=== PATIENT | female | born 1975 ===

== ENCOUNTER 2017-04-05 04:34 | Emergency (ER) | payer SELFPAY ==
[2017-04-05 04:35] VITALS: BP 177/88; PULSE 73; RESP 16; TEMP 98.9; O2SAT 99
[2017-04-05] MEDS ORDERED: IOHEXOL 350 MG/ML 10 ML VIAL (for RAD DIAG) IVCONTRAST ONE (04:35)
[2017-04-05 05:50] VITALS: BP 177/103; PULSE 80; RESP 20; O2SAT 100
[2017-04-05] MEDS ORDERED: SODIUM CHLOR 0.9% 1000 ML INJ 1,000 ML IV SCH (05:57)
[2017-04-05] MEDS ORDERED: SODIUM CHLORIDE 0.9% FLUSH 10 ML FLUSH IV FLUSH PRN (06:00)
[2017-04-05] MEDS ORDERED: MORPHINE SULFATE 8 MG/ML INJ IV PUSH ONE (06:00)
[2017-04-05] MEDS ORDERED: LIDOCAINE VISCOUS 2% SOLN 15 ML UDC PO ONE (06:00)
[2017-04-05] MEDS ORDERED: ALUMINUM/MAGNESIUM/SIMETH 30 ML CUP PO ONE (06:00)
[2017-04-05 06:31] VITALS: BP 151/83; PULSE 60; RESP 19; O2SAT 98
--- NOTE | 2017-04-05 06:39 | PD ---
HPI Chief Complaint: Abdominal Pain Time Seen by Provider: 05:51 Travel History International Travel<30 days: No Contact w/Intl Traveler<30days: No Traveled to known affect area: No History of Present Illness HPI The patient is 42 years old. She reports abdominal cramping last night and again tonight. Tonight the pain is really quite severe prior and the right upper quadrant with radiation to the back. No vomiting diarrhea or fever. Appetite is normal. Last oral intake was chicken. Patient denies any unusual activity that may have led to symptoms. No similar priors. No vaginal discharge. Last menstruation right now. PFSH Past Medical History Immunizations Current: Yes ?: Not : 3 Para: 3 Tubal Ligation: Yes Social History Alcohol Use: No Tobacco Use: No Substance Use: No Allergies-Medications (Allergen,Severity, Reaction): Coded Allergies: No Known Allergies (Unverified , 04/05/17) Reported Meds & Prescriptions Reported Meds & Active Scripts Active No Active Prescriptions or Reported Medications Review of Systems Except as stated in HPI: all other systems reviewed are Neg Physical Exam Narrative GENERAL: 42 yo F, WNWD, mild distress SKIN: Warm and dry. HEAD: Atraumatic. Normocephalic. EYES: Pupils equal and round. No scleral icterus. No injection or drainage. ENT: No nasal bleeding or discharge. Mucous membranes pink and moist. NECK: Trachea midline. No JVD. CARDIOVASCULAR: Regular rate and rhythm. RESPIRATORY: No accessory muscle use. Clear to auscultation. Breath sounds equal bilaterally. GASTROINTESTINAL: Soft. TTP RUQ and epigastric. MUSCULOSKELETAL: Extremities without clubbing, cyanosis, or edema. No obvious deformities. NEUROLOGICAL: Awake and alert. No obvious cranial nerve deficits. Motor grossly within normal limits. Five out of 5 muscle strength in the arms and legs. Normal speech. PSYCHIATRIC: Appropriate mood and affect; insight and judgment normal. Data Data Last Documented VS Vital Signs Date Time Temp Pulse Resp B/P (MAP) Pulse Ox O2 Delivery O2 Flow Rate FiO2 04/05/17 06:31 60 19 151/83 (105) 98 Room Air 04/05/17 04:35 98.9 Signs reviewed Orders Orders Complete Blood Count With Diff (04/05/17 05:57) Comprehensive Metabolic Panel (04/05/17 05:57) Lipase (04/05/17 05:57) Urinalysis - C+S If Indicated (04/05/17 05:57) Ct Abd/Pel W Iv Contrast(Rout) (04/05/17 05:57) Iv Access Insert/Monitor (04/05/17 05:57) Ecg Monitoring (04/05/17 05:57) Oximetry (04/05/17 05:57) Sodium Chlor 0.9% 1000 Ml Inj (Ns 1000 M (04/05/17 05:57) Sodium Chloride 0.9% Flush (Ns Flush) (04/05/17 06:00) Morphine Inj (Morphine Inj) (04/05/17 06:00) Al-Mag Hy-Si 40-40-4 Mg/Ml Liq (Mag-Al P (04/05/17 06:00) Lidocaine 2% Viscous (Xylocaine 2% Visco (04/05/17 06:00) Ed Urine Pregnancytest Poc (04/05/17 05:57) MDM Medical Decision Making Medical Screen Exam Complete: Yes Emergency Medical Condition: Yes Differential Diagnosis Gastritis, pancreatitis, appendicitis, acute cholecystitis, ascending cholangitis, AAA, perforated viscous, mesenteric ischemia, hepatitis, cystitis, hydronephrosis/hydroureter/nephroureter calculus, mesenteric adenitis, biliary colic Narrative Course Workup pending at time of dictation. Oncoming provider to follow-up and disposition patient. Scripts No Active Prescriptions or Reported Meds Jesus Ching MD Apr 05, 2017 06:39
[2017-04-05 06:50] LABS: AUTOMATED NEUTROPHIL # 6.3 TH/MM3 (1.8-7.7); BASOPHIL # 0.1 TH/MM3 (0-0.2); BASOPHIL % 0.8 % (0.0-2.0); EOSINOPHIL # 0.1 TH/MM3 (0-0.4); EOSINOPHIL % 1.2 % (0.0-4.0); HEMATOCRIT 41.2 % (35.0-46.0); HEMO FLAGS DIFF FINAL; LYMPHOCYTE # 1.6 TH/MM3 (1.0-4.8); MEAN CELL VOLUME 89.6 FL (80.0-100.0); MEAN CORPUSCULAR HEMOGLOBIN 30.2 PG (27.0-34.0); MEAN CORPUSCULAR HGB CONC 33.7 % (32.0-36.0); MONO % 8.1 % (0.0-8.0); NEUT % 71.9 % (16.0-70.0); PLATELET COUNT 310 TH/MM3 (150-450); RED CELL DISTRIBUTION WIDTH 14.4 % (11.6-17.2); WHITE BLOOD COUNT 8.8 TH/MM3 (4.0-11.0)
[2017-04-05 07:15] VITALS: BP 140/67; PULSE 70; RESP 16; O2SAT 97
[2017-04-05 07:16] LABS: BLOOD, URINE MOD (NEG); COMMENT (UR) CULT NOT INDICATED; CULTURE IF INDICATED CULT NOT INDICATED; GLUCOSE,URINE NEG (NEG); HYALINE CAST, URINE 1 /lpf (RARE); KETONE, URINE NEG (NEG); MUCUS URINE FEW /lpf (OCC); NITRITE,URINE NEG (NEG); PH, URINE 5.5 (5.0-8.5); SQUAMOUS EPITHELIAL CELL URINE 1 /hpf (0-5); URINE COLOR YELLOW (YELLW/STRAW)
[2017-04-05 07:21] LABS: ANION GAP 5 MEQ/L (5-15); AST (GOT) 31 U/L (15-37); BICARBONATE 26.9 MEQ/L (21.0-32.0); BLOOD UREA NITROGEN 11 MG/DL (7-18); CHLORIDE 105 MEQ/L (98-107); GLOMERULAR FILTRATION RATE 77 ML/MIN (>89); POTASSIUM 3.8 MEQ/L (3.5-5.1); SODIUM (NA) 137 MEQ/L (136-145)
[2017-04-05 07:22] LABS: ALT (GPT) 55 U/L (10-53)
[2017-04-05 07:23] LABS: ALKALINE PHOSPHATASE 78 U/L (45-117); TOTAL BILIRUBIN ADULT 0.2 MG/DL (0.2-1.0)
[2017-04-05] MEDS ORDERED: SODIUM CHLOR 0.9% 1000 ML INJ 1,000 ML IV ONE (07:30)
--- NOTE | 2017-04-05 07:35 | PD ---
Physical Exam Date Seen by Provider: Apr 05, 2017 Time Seen by Provider: 07:00 Narrative Care was assumed from Dr. Ching at 7 AM pending workup for epigastric/right upper quadrant pain. On my exam, the patient does have epigastric and right upper quadrant tenderness. Otherwise, her abdominal exam is benign. Data Data Last Documented VS Vital Signs Date Time Temp Pulse Resp B/P (MAP) Pulse Ox O2 Delivery O2 Flow Rate FiO2 04/05/17 07:15 70 16 140/67 (91) 97 Room Air 04/05/17 04:35 98.9 Orders Orders Complete Blood Count With Diff (04/05/17 05:57) Comprehensive Metabolic Panel (04/05/17 05:57) Lipase (04/05/17 05:57) Urinalysis - C+S If Indicated (04/05/17 05:57) Ct Abd/Pel W Iv Contrast(Rout) (04/05/17 05:57) Iv Access Insert/Monitor (04/05/17 05:57) Ecg Monitoring (04/05/17 05:57) Oximetry (04/05/17 05:57) Sodium Chlor 0.9% 1000 Ml Inj (Ns 1000 M (04/05/17 05:57) Sodium Chloride 0.9% Flush (Ns Flush) (04/05/17 06:00) Morphine Inj (Morphine Inj) (04/05/17 06:00) Al-Mag Hy-Si 40-40-4 Mg/Ml Liq (Mag-Al P (04/05/17 06:00) Lidocaine 2% Viscous (Xylocaine 2% Visco (04/05/17 06:00) Ed Urine Pregnancytest Poc (04/05/17 05:57) Sodium Chlor 0.9% 1000 Ml Inj (Ns 1000 M (04/05/17 07:30) Iohexol 350 Inj (Omnipaque 350 Inj) (04/05/17 04:35) Labs Laboratory Tests Test 04/05/17 06:15 White Blood Count 8.8 TH/MM3 Red Blood Count 4.60 MIL/MM3 Hemoglobin 13.9 GM/DL Hematocrit 41.2 % Mean Corpuscular Volume 89.6 FL Mean Corpuscular Hemoglobin 30.2 PG Mean Corpuscular Hemoglobin Concent 33.7 % Red Cell Distribution Width 14.4 % Platelet Count 310 TH/MM3 Mean Platelet Volume 9.3 FL Neutrophils (%) (Auto) 71.9 % Lymphocytes (%) (Auto) 18.0 % Monocytes (%) (Auto) 8.1 % Eosinophils (%) (Auto) 1.2 % Basophils (%) (Auto) 0.8 % Neutrophils # (Auto) 6.3 TH/MM3 Lymphocytes # (Auto) 1.6 TH/MM3 Monocytes # (Auto) 0.7 TH/MM3 Eosinophils # (Auto) 0.1 TH/MM3 Basophils # (Auto) 0.1 TH/MM3 CBC Comment DIFF FINAL Differential Comment Urine Color YELLOW Urine Turbidity HAZY Urine pH 5.5 Urine Specific [place] 1.023 Urine Protein TRACE mg/dL Urine Glucose (UA) NEG mg/dL Urine Ketones NEG mg/dL Urine Occult Blood MOD Urine Nitrite NEG Urine Bilirubin NEG Urine Urobilinogen LESS THAN 2.0 MG/DL Urine Leukocyte Esterase SMALL Urine RBC /hpf Urine WBC 4 /hpf Urine Squamous Epithelial Cells 1 /hpf Urine Hyaline Casts 1 /lpf Urine Mucus FEW /lpf Microscopic Urinalysis Comment CULT NOT INDICATED Blood Urea Nitrogen 11 MG/DL Creatinine 0.81 MG/DL Random Glucose 95 MG/DL Total Protein 7.8 GM/DL Albumin 3.6 GM/DL Calcium Level 9.7 MG/DL Alkaline Phosphatase 78 U/L Aspartate Amino Transf (AST/SGOT) 31 U/L Alanine Aminotransferase (ALT/SGPT) 55 U/L Total Bilirubin 0.2 MG/DL Sodium Level 137 MEQ/L Potassium Level 3.8 MEQ/L Chloride Level 105 MEQ/L Carbon Dioxide Level 26.9 MEQ/L Anion Gap 5 MEQ/L Estimat Glomerular Filtration Rate 77 ML/MIN Lipase 171 U/L [facility] Supervised Visit with STANLEY: No Narrative Course CBC & BMP Diagram 04/05/17 06:15 Total Protein 7.8, Albumin 3.6, Calcium Level 9.7, Alkaline Phosphatase 78, Aspartate Amino Transf (AST/SGOT) 31, Alanine Aminotransferase (ALT/SGPT) 55 H, Total Bilirubin 0.2 Lipase is [address] abd/pelvis: 1. Tiny fat-containing umbilical hernia. 2. Cholelithiasis. 3. Diverticulosis without diverticulitis. This patient has cholelithiasis with no evidence of cholecystitis. We discharged and referred to surgery as an outpatient Diagnosis Primary Impression: Right upper quadrant pain Additional Impression: Cholelithiasis Qualified Codes: K80.20 - Calculus of gallbladder without cholecystitis without obstruction Referrals: Jose Andrea MD 1 week Patient Instructions: Gallstones (DC), General Instructions, Narcotic given in the ED Additional Instruction: Avoid fatty and fried foods. Avoid raw vegetables. Follow up with surgery as an outpatient. Med/Other Pt SpecificInfo: Prescription(s) given Scripts Promethazine (Phenergan) 25 Mg Tablet 25 MG PO Q6H Y for NAUSEA OR VOMITING, #12 TAB 0 Refills Prov: Gail Tripathi MD 04/05/17 Hydrocodone-Acetaminophen ([place]) 5-325 mg Tab 1 TAB PO Q4H Y for PAIN, #12 TAB 0 Refills Prov: Gail Tripathi MD 04/05/17 Disposition: 01 DISCHARGE HOME Condition: Stable Gail Tripathi MD Apr 05, 2017 07:35
--- NOTE | 2017-04-05 07:58 | RADRPT ---
EXAM DATE/TIME: 04/05/2017 07:41 [place] COMPARISON: No previous studies available for comparison. INDICATIONS : Abdominal pain. IV CONTRAST: 95 cc Omnipaque 350 (iohexol) IV ORAL CONTRAST: No oral contrast ingested. RADIATION DOSE: 16.86 CTDIvol (mGy) MEDICAL HISTORY : None SURGICAL HISTORY : Tubal ligation. ENCOUNTER: Initial ACUITY: 1 day PAIN SCALE: 7/10 LOCATION: Bilateral upper quadrant TECHNIQUE: Volumetric scanning of the abdomen and pelvis was performed. Using automated exposure control and ad justment of the mA and/or kV according to patient size, radiation dose was kept as low as reasonably achievable to obtain optimal diagnostic quality images. DICOM format image data is available electro nically for review and comparison. FINDINGS: Lung bases are clear. Osseous structures demonstrate a vertebral body hemangioma at L2. No pleural or pericardial effusions. Cholelithiasis is noted. The liver, spleen, pancreas, adrenal glands, kidneys are unremarkable. Tiny fact an umbilical hernia. Urinary bladder, uterus and ovaries are unremarkabl e. There is diverticulosis of the sigmoid colon and descending colon without diverticulitis. Appendix is normal. No aneurysm. No adenopathy. CONCLUSION: 1. Tiny fat-containing umbilical hernia. 2. Cholelithiasis. 3. Diverticulosis without diverticulitis. Derrek Robertson MD on April 05, 2017 at 7:54 Board Certified Radiologist. This report was verified electronically.
[2017-04-05] MEDS ORDERED: PROM25TA10 PO (08:04)
[2017-04-05] MEDS ORDERED: NORC5TAB PO (08:04)
== END 2017-04-05 08:17 | disposition home or self-care (01) ==
LOC: NEPE 04:34
DX: K80.20 Calculus of gallbladder without cholecystitis without obstruction (principal)
CPT/HCPCS: 74177; 80053; 81001; 83690; 84703; 85025; 96361; 96374; 99285; J2270; J7030; Q9967